=== PATIENT | female | born 1980 | race Caucasian/White ===

== ENCOUNTER 2018-06-02 13:12 | Emergency (ER) | payer OTHER ==
[2018-06-02 13:29] VITALS: BP 118/82; PULSE 113; TEMP 99.8; BMI 25.4
[2018-06-02] MEDS ORDERED: ACETAMINOPHEN 500 MG TABLET (FP) PO ONE (13:59)
--- NOTE | 2018-06-02 14:05 | PDOC ---
History of Present Illness - General Chief Complaint: Sore Throat Stated Complaint: PAIN Time Seen by Provider: 06/02/18 13:44 History Source: Patient Exam Limitations: No Limitations - History of Present Illness Initial Comments: 06/02/18 13:57 HISTORY OF PRESENT ILLNESS: 38-year-old woman past medical history of anemia presents emergency department for evaluation of subjective fevers, chills, myalgias, arthralgia, sore throat and moist cough for the past 2-3 days. She denies any chest pain or shortness of breath. She denies abdominal pain nausea, vomiting. She is unsure of any sick contacts. No recent travel or sick contacts. PAST MEDICAL HISTORY: anemia SURGICAL HISTORY: Denies ALLERGIES: No known drug allergies REVIEW OF SYSTEMS General/Constitutional: +fever. Denies weakness, weight change. HEENT: Denies change in vision. Denies ear pain or discharge. +sore throat. Cardiovascular: Denies chest pain or shortness of breath. Respiratory: Moist productive cough. Denies wheezing, or hemoptysis. Gastrointestinal: Denies nausea, vomiting, diarrhea or constipation. Denies rectal bleeding. Genitourinary: Denies dysuria, frequency, or change in urination. Musculoskeletal: +myalgias. Denies neck or back pain. Skin and breasts: Denies rash or easy bruising. Neurologic: Denies headache, vertigo, loss of consciousness, or loss of sensation. Psychiatric: Denies depression or anxiety. Endocrine: Denies increased thirst. Denies abnormal weight change. Hematologic/Lymphatic: Denies anemia, easy bleeding, or history of blood clots. Allergic/Immunologic: Denies hives or skin allergy. Denies latex allergy. PHYSICAL EXAM General Appearance: Well-appearing, appropriately dressed. No apparent distress , no intoxication. HEENT: EOMI, PERRLA, normal voice, TMs retracted bilaterally. No conjunctival pallor. No photophobia, scleral icterus. Oropharynx erythematous without lesions or exudate. Cobblestoning noted in the posterior. No nasal discharge present. Neck: Supple. Trachea midline. No tenderness, rigidity, carotid bruit, stridor , or thyromegaly. Nontender anterior cervical lymphadenopathy present. Respiratory/Chest: Lungs CTAB. No shortness of breath, chest tenderness, respiratory distress, accessory muscle use. No crackles, rales, rhonchi, stridor , wheezing, dullness Cardiovascular: RRR. S1, S2. No JVD, murmur, bradycardia, tachycardia. Vascular Pulses: Dorsalis-Pedis (R): 2+, Dorsalis-Pedis (L): 2+ Gastrointestinal/Abdominal: Normal bowel sounds. Abdomen soft, non-distended. No tenderness or rebound tenderness. No organomegaly, pulsatile mass, guarding, hernia, hepatomegaly, splenomegaly. Musculoskeletal/Extremities: Normal inspection. FROM of all extremities, normal capillary refill. Pelvis Stable. No CVA tenderness. No tenderness to extremities, pedal edema, swelling, erythema or deformity. Integumentary: Appropriate color, dry, warm. No cyanosis, erythema, jaundice or rash Neurologic: dynamic balancer set up worker II-XII intact. Fully oriented, alert. Appropriate mood/affect. Motor strength 5/5. No appreciable EOM palsy, facial droop or sensory deficit. Past History - Past Medical History Allergies/Adverse Reactions: Allergies Allergy/AdvReac Type Severity Reaction Status Date / Time No Known Allergies Allergy Verified 06/02/18 13:29 Home Medications: Ambulatory Orders Ibuprofen [Motrin -] 400 mg PO QID 06/02/18 Anemia: Yes COPD: No - Suicide/Smoking/Psychosocial Hx Smoking History: Never smoked Hx Alcohol Use: No Drug/Substance Use Hx: No Substance Use Type: None *Physical Exam - Vital Signs Last Vital Signs Temp Pulse Resp BP Pulse Ox 99.8 F H 113 H 20 118/82 100 06/02/18 13:27 06/02/18 13:27 06/02/18 13:27 06/02/18 13:27 06/02/18 13:27 Moderate Sedation - Procedure Monitoring Vital Signs: Procedure Monitoring Vital Signs Temperature 99.8 F H 06/02/18 13:27 Pulse Rate 113 H 06/02/18 13:27 Respiratory Rate 20 06/02/18 13:27 Blood Pressure 118/82 06/02/18 13:27 O2 Sat by Pulse Oximetry (%) 100 06/02/18 13:27 Medical Decision Making - Medical Decision Making 06/02/18 14:01 A/P: 38-year-old woman with 2-3 days of influenza-like illness Influenza testing Urinalysis Urine culture Urine Tylenol 1 g orally now Reassess 06/02/18 15:23 Influenza and urine testing and negative. I'll discharge the patient home with supportive treatment for upper respiratory infection. I discussed the physical exam findings, ancillary test results and final diagnoses with the patient. I answered all of the patient's questions. The patient was satisfied with the care received and felt comfortable with the discharge plan and treatment plan. The patient will call their primary care physician within 24 hours to arrange follow-up and will return to the Emergency Department with any new, persistent or worsening symptoms. *DC/Admit/Observation/Transfer Diagnosis at time of Disposition: URI (upper respiratory infection) Qualifiers: URI type: unspecified viral URI Qualified Code(s): J06.9 - Acute upper respiratory infection, unspecified - Discharge Dispostion Disposition: HOME Condition at time of disposition: Stable Decision to Admit order: No - Referrals - Patient Instructions Additional Instructions: Rest, drink lots of fluids: Teas, water, soups, Pedialyte Saltwater gargles Steamy showers/seem to face break up mucus Avoid contact with others until fevers and cough resolved Lots of handwashing and good hygiene Continue [id number] medications for symptomatic relief Tylenol or Motrin for fever and pain Followup with private physician in one to 2 days as needed Return to emergency department for worsened symptoms, fevers, dehydration El descminoojeronimoos lquidos: ts, agua, sopas, Pedialyte grgaras de agua salada Duchas Steamy / parecen enfrentar aflojar la mucosidad Evite el contacto con otras personas hasta que la fiebre y la tos resueltos Un montn de lavado de bennett y la higiene Continuar [id number] medicamentos para el alivio sintomtico Tylenol o Motrin para la fiebre y el dolor Followup con el mdico privado en min o 2 balderas segn sea necesario Regresar a urgencias por sntomas empeoraron, fiebres, deshidratacin - Post Discharge Activity Forms/Work/School Notes: Back to Work
[2018-06-02] MEDS ORDERED: ACETAMINOPHEN 500 MG TABLET (FP) ONE (14:18)
[2018-06-02 14:42] LABS: HCG,QUALITATIVE URINE Negative
[2018-06-02 14:50] LABS: URINE APPEARANCE CLEAR; URINE BILIRUBIN NEGATIVE (<2.0 mg/dL); URINE COLOR STRAW; URINE GLUCOSE (UA) NEGATIVE (NEGATIVE); URINE KETONE NEGATIVE (NEGATIVE); URINE LEUK ESTERASE NEGATIVE (NEGATIVE); URINE NITRITE NEGATIVE (NEGATIVE); URINE PROTEIN NEGATIVE (NEGATIVE); URINE UROBILINOGEN NEGATIVE mg/dL (0.2-1.0)
== END 2018-06-02 15:33 | disposition home or self-care (01) ==
LOC: JERFT 13:12
DX: J06.9 Acute upper respiratory infection, unspecified (principal)
CPT/HCPCS: 81003; 84703; 87086; 87804; 99281-25

== ENCOUNTER 2018-11-08 20:56 | Emergency (ER) | payer OTHER ==
[2018-11-08] MEDS ORDERED: predniSONE 20 MG TABLET (UD) PO ONE (21:02)
[2018-11-08] MEDS ORDERED: diphenhydrAMINE HCL 25 MG CAPSULE (FP) PO ONE ×2 (21:02→21:46)
--- NOTE | 2018-11-08 21:02 | PDOC ---
Rapid Medical Evaluation Chief Complaint: Rash Time Seen by Provider: 11/08/18 20:58 Medical Evaluation: Allergies Allergy/AdvReac Type Severity Reaction Status Date / Time No Known Allergies Allergy Verified 06/02/18 13:29 11/08/18 21:00 Pt c/o: itchy rash x 3 days, no relief with benadryl po, no diff swallowing or breathing Pt on brief exam: noted wheals to body pt ordered for: prednisone and benadryl Pt to proceed to the ED Discharge Disposition - Diagnosis Urticaria - Discharge Dispostion Disposition: HOME Condition at time of disposition: Stable - Prescriptions Prescriptions: Prednisone [Deltasone] 40 mg PO DAILY #8 tablet - Referrals - Patient Instructions Printed Discharge Instructions: DI for Hives Additional Instructions: Thank you for choosing [facility]. It was a pleasure taking care of you. Continue using Benadryl as needed for itching Also take the steroids as prescribed Follow-up with your doctor in 2 days Return to the Emergency Department if your symptoms worsen or persist, have difficulty breathing, throat closing sensation or other concerning symptoms. - Post Discharge Activity
[2018-11-08 21:04] VITALS: BP 126/71; PULSE 70; TEMP 98.6; BMI 25.0
[2018-11-08] MEDS ORDERED: predniSONE 20 MG TABLET (UD) ONE (21:46)
--- NOTE | 2018-11-08 22:10 | PDOC ---
History of Present Illness - General Chief Complaint: Rash Stated Complaint: POSSIBLE ALLERGIC REACTION Time Seen by Provider: 11/08/18 20:58 History Source: Patient, Sibling Exam Limitations: Language Barrier Past History - Past Medical History Allergies/Adverse Reactions: Allergies Allergy/AdvReac Type Severity Reaction Status Date / Time No Known Allergies Allergy Verified 11/08/18 21:04 Home Medications: Ambulatory Orders Ibuprofen [Motrin -] 400 mg PO QID 06/02/18 Prednisone [Deltasone] 40 mg PO DAILY #8 tablet 11/08/18 Anemia: Yes COPD: No - Suicide/Smoking/Psychosocial Hx Smoking History: Never smoked Hx Alcohol Use: No Drug/Substance Use Hx: No Substance Use Type: None *Physical Exam - Vital Signs Last Vital Signs Temp Pulse Resp BP Pulse Ox 98.6 F 70 18 126/71 99 11/08/18 20:59 11/08/18 20:59 11/08/18 20:59 11/08/18 20:59 11/08/18 20:59 - Physical Exam General Appearance: No: Apparent Distress HEENT: positive: Normal Voice. negative: Muffled/Hoarse voice Respiratory/Chest: positive: Lungs Clear, Normal Breath Sounds. negative: Respiratory Distress Cardiovascular: positive: Regular Rhythm, Regular Rate, S1, S2. negative: Murmur Integumentary: positive: Hives (diffuse urticaria along body; no angioedema), Rash ED Treatment Course - Medications Given in the ED: ED Medications Discontinued Medications Generic Name Dose Route Start Last Admin Trade Name Freq PRN Reason Stop Dose Admin Diphenhydramine HCl 50 mg 11/08/18 21:02 11/08/18 21:48 Benadryl - PO 11/08/18 21:03 50 mg ONCE ONE Administration Prednisone 60 mg 11/08/18 21:02 11/08/18 21:49 Deltasone - PO 11/08/18 21:03 60 mg ONCE ONE Administration Medical Decision Making - Medical Decision Making 38 y/o F presents with diffuse itchy rash x 3 days. Mentions rash initially appeared 3 days ago and took Benadryl and it got a little better. However, it has now progressed and despite taking Benadryl, it is not getting any better. Patient last took Benadryl at 2 PM today. Denies recent travel, use of new meds/ foods/products, sob. Allergic reaction; in no respiratory distress Given Benadryl and Prednisone 11/08/18 22:05 *DC/Admit/Observation/Transfer Diagnosis at time of Disposition: Urticaria - Discharge Dispostion Disposition: HOME Condition at time of disposition: Stable Decision to Admit order: No - Prescriptions Prescriptions: Prednisone [Deltasone] 40 mg PO DAILY #8 tablet - Referrals - Patient Instructions Printed Discharge Instructions: DI for Hives Additional Instructions: Thank you for choosing [facility]. It was a pleasure taking care of you. Continue using Benadryl as needed for itching Also take the steroids as prescribed Follow-up with your doctor in 2 days Return to the Emergency Department if your symptoms worsen or persist, have difficulty breathing, throat closing sensation or other concerning symptoms. - Post Discharge Activity
== END 2018-11-08 22:21 | disposition home or self-care (01) ==
LOC: JERFT 20:56
DX: L50.9 Urticaria, unspecified (principal)
CPT/HCPCS: 99281-25